=== PATIENT | male | born 1970 | race Two or more races ===

== ENCOUNTER 2021-09-08 08:32 | Emergency (ER) | payer SELFPAY ==
[~2021-09-08] VITALS: Ht 167.6 cm; Wt 48.9 kg
[2021-09-08 09:37] LABS: BILIRUBIN,URINE NEGATIVE (NEG); CLARITY,URINE CLEAR; COLOR,URINE YELLOW; NITRITE,URINE NEGATIVE (NEG); PH,URINE 6.5 (<5.0-8.0); PROTEIN,URINE NEGATIVE (NEG-TRACE); UROBILINOGEN,URINE 0.2 mg/dL (0.2 mg/dL)
[2021-09-08 09:57] LABS: BACTERIA,URINE 0 /HPF (0-FEW); RBC,URINE 0 /HPF (0-2); WBC,URINE 0 /HPF (0-4)
--- NOTE | 2021-09-08 10:25 | PHYS DOC ---
Past Medical History Past Surgical History: No Surgical History Smoking Status: Unknown if ever smoked Alcohol Use: None General Adult EDM: Chief Complaint: ABDOMINAL PAIN HPI: HPI: HPI limited to interpretation service, patient has [place]-speaking, used [facility] [address] provided interpreter and translator environmental service aide #[id number]. Patient is a 51-year-old male who presents to the emergency department complaining abdominal swelling with urinary pressure and urinary burning for the past 3 weeks. Denies penile discharge, rashes or lesions to his genitals, denies STI concerns. Patient denies abdominal pain, reports intermittent back pains, also reports intermittent anterior left thigh and right thigh numbness and tingling while working over the past 3 weeks. Denies thigh numbness or discomfort at this time. Denies numbness or tingling to his feet, denies swelling or edema to his lower extremities. Denies recent fever or chills. Denies nausea, vomiting, diarrhea. Denies seeing blood in his stool or in his urine. Patient reports normal bowel movement 2 days ago also reporting normal bowel movements every other day. Patient denies allergies to medications, does not take [id number] or prescription medications at home, reports smoking cigarettes, denies alcohol consumption or illicit drug use. Denies history of IVDU, Immunosuppression, cancer, fever/chills, saddle anesthesia, bowel/bladder incontinence/retention, or trauma. Review of Systems: Review of Systems: ROS limited to interpreter and translator service. 14 body systems of review of systems have been reviewed. See HPI for pertinent positives and negative responses, otherwise all other systems are negative, nonpertinent or noncontributory. Constitutional: Negative except as outlined in HPI above. Skin: Negative except as outlined in HPI above. Eyes: Negative except as outlined in HPI above. HENT: Negative except as outlined in HPI above. Respiratory: Negative except as outlined in HPI above. Cardiovascular: Negative except as outlined in HPI above. GI: Negative except as outlined in HPI above. : Negative except as outlined in HPI above. Musculoskeletal: Negative except as outlined in HPI above. Integument: Negative except as outlined in HPI above. Neurologic: Negative except as outlined in HPI above. Endocrine: Negative except as outlined in HPI above. Lymphatic: Negative except as outlined in HPI above. Psychiatric: Negative except as outlined in HPI above. Heart Score: C/O Chest Pain: No Risk Factors: Risk Factors: DM, Current or recent (<one month) smoker, HTN, HLP, family history of CAD, obesity. Risk Scores: Score 0 - 3: 2.5% MACE over next 6 weeks - Discharge Home Score 4 - 6: 20.3% MACE over next 6 weeks - Admit for Clinical Observation Score 7 - 10: 72.7% MACE over next 6 weeks - Early Invasive Strategies Allergies: Allergies: Allergies Coded Allergies Type Severity Reaction Last Updated Verified No Known Drug Allergies 09/08/21 No Physical Exam: PE: Constitutional: Well developed, well nourished, no acute distress, non-toxic appearance. 51-year-old male in no apparent distress. HENT: Normocephalic, atraumatic. Eyes: Conjunctiva normal, no discharge. Neck: Normal range of motion, no stridor. Cardiovascular: No cyanosis appreciated, distal cap refill less than 2 seconds. Lungs & Thorax: Patient is in no respiratory distress, no audible adventitious lung sounds appreciated. Abdomen: Nontender, no abnormalities noted. No tenderness to palpation all 4 quadrants, normal bowel sounds all 4 quadrants, no abnormal discoloration of this get of the abdomen appreciated. Skin: Warm, dry, no erythema, no rash. Back: No tenderness, no deformities. 5 out of 5 lower extremity motor strength with hip flexion, knee flexion/extension/abduction, plantar/dorsiflexion at ankle and dorsiflexion of the toes bilaterally. She denies Extremities: No tenderness, no cyanosis, no clubbing, ROM intact, no edema. Neurologic: Alert and oriented X 3, normal motor function, normal sensory function, no focal deficits noted. Psychologic: Affect normal, judgement normal, mood normal. Current Patient Data: Labs: Laboratory Tests Test 09/08/21 09:25 Urine Collection Type Unknown Urine Color Yellow Urine Clarity Clear Urine pH 6.5 (<5.0-8.0) Urine Specific [place] <=1.005 (1.000-1.030) Urine Protein Negative mg/dL (NEG-TRACE) Urine Glucose (UA) Negative mg/dL (NEG) Urine Ketones (Stick) Negative mg/dL (NEG) Urine Blood Negative (NEG) Urine Nitrite Negative (NEG) Urine Bilirubin Negative (NEG) Urine Urobilinogen Dipstick 0.2 mg/dL (0.2 mg/dL) Urine Leukocyte Esterase Negative (NEG) Urine RBC 0 /HPF (0-2) Urine WBC 0 /HPF (0-4) Urine Squamous Epithelial Cells None /LPF Urine Bacteria 0 /HPF (0-FEW) Vital Signs: Vital Signs Date Time Temp Pulse Resp B/P (MAP) Pulse Ox O2 Delivery O2 Flow Rate FiO2 09/08/21 09:04 86 18 111/72 (85) 100 Room Air EKG: EKG: [] Radiology/Procedures: Radiology/Procedures: STATUS: REG ER ORD. PHYSICIAN: CHARLES ADAN APRN REASON: LOWER BACK PAIN PROCEDURE: CT LUMBAR SPINE RECONSTRUCTION EXAM: CT Abdomen and Pelvis with IV contrast. Reformatted images of the lumbar spine. CLINICAL HISTORY: Reason: Abdominal swelling / Spl. Instructions: OMNI 300 INJ. 75 MLS / History: . COMPARISON: none TECHNIQUE: Helical CT of the abdomen and pelvis was performed following the administration of intravenous contrast. Without oral contrast Axial, coronal and sagittal reformatted images were generated. PQRS compliance statement - One or more of the following individualized dose reduction techniques were utilized for this study: 1. Automated exposure control 2. Adjustment of the mA and/or kV according to patient size 3. Use of iterative reconstruction technique FINDINGS: Lower Chest: Visualized lung bases are clear. Abdomen and Pelvis: There is normal in size and attenuation. There is a trace amount of focal fat adjacent to the falciform ligament. There is a minimal amount of periportal edema. Normal gallbladder is present. No significant biliary ductal dilation. The spleen, adrenals, and pancreas are unremarkable. Symmetric renal nephrograms. No nephrolithiasis or hydronephrosis. Stomach is unremarkable. No evidence of bowel obstruction or focal inflammation there is a moderate colorectal stool burden with moderate amount of air seen within the colon and rectum. Appendix is not definitely visualized. No free intra-abdominal air or free fluid. No pathologically enlarged abdominal or pelvic lymph nodes. Vasculature is normal in course and caliber. Bladder is distended but normal in appearance. Prostate gland is unremarkable. Intra-abdominal wall is unremarkable. Bones: No acute fracture or suspicious osseous abnormalities. There are 5 nonrib-bearing lumbar vertebrae. Vertebral body heights are preserved. No acute or suspicious osseous abnormalities. There is moderate intervertebral and facet arthrosis at the L5-S1 level. No evidence of significant degenerative changes of the SI joints. IMPRESSION: 1. No acute abnormality in the abdomen/pelvis or lumbar spine. 2. Moderate colorectal stool burden suggestive of constipation. Recommend clinical correlation. Electronically signed by: Ryan Fuentes DO (09/08/2021 12:43 PM) [facility] Course & Med Decision Making: Course & Med Decision Making Pertinent Labs and Imaging studies reviewed. (See chart for details) 51-year-old male, vital signs reviewed, presents to the emergency department concerning abdominal swelling with urinary burning and pressure for the past 3 weeks. Physical examination unremarkable, patient has no symptoms at this current time, patient did report he was sent here by his work to get checked out because of his complaints during work time. Will order urinalysis assay. Patient's urine is not infected, with patient's other complaints of abdominal swelling and intermittent back pain and intermittent lower extremity paresthesias will order CTA abdomen, CBC, CMP, lactic acid, CK profile. A Chlamydia/GC was added to urine sample in lab. CT imaging suggestive of constipation. Patient's labs unremarkable. Discussed findings with patient, will order magnesium citrate medication prior to discharge. Discussed with patient increase water intake, increase foods with fiber to help maintain normal bowel movements. Discussed with patient follow-up with primary care, return ER precautions and concerns. Patient is amenable to ED discharge planning. Discussed with the patient all findings and diagnostic testing as well as the need to follow-up with their primary care provider for further evaluation and treatment or return to the ED if any new or worsening symptoms. Strict return precautions were also discussed at length, the patient voiced understanding and agreement with the discharge planning. The patient was nontoxic in appearance, in no apparent distress, and hemodynamically stable at the time of disposition. Deirdre Disclaimer: Deirdre Disclaimer: This electronic medical record was generated, in whole or in part, using a voice recognition dictation system. Departure Departure Impression: Primary Impression: Constipation Qualified Codes: K59.00 - Constipation, unspecified Additional Impression: Abdominal pain Qualified Codes: R10.84 - Generalized abdominal pain Disposition: HOME / SELF CARE / HOMELESS Condition: GOOD Referrals: NO PCP (PCP) Patient Instructions: Constipation, Adult Additional Instructions: You were seen today in the emergency department for abdominal discomfort and swelling. An extensive abdominal investigation was performed today in the emergency department. Your urine is not infected, your lab work did not show concerning findings today. The CT scan of your abdomen did show a large amount of poop in your large intestine that is suggestive of constipation. You were given a bottle of magnesium citrate to take when you get home. Please drink one half of this bottle, then wait 12 hours, then drink the other half of this bottle. Most likely you will experience increased cramping and abdominal discomfort while the medication is moving your constipated poop through your large intestine. You should find good relief after having a bowel movement. Please consider increasing your fiber intake with your diet, increase fluid intake such as water to help keep your poop loose and manageable. I have attached information for you to follow-up with a primary care physician. Please see 1 soon for reevaluation. You may return to normal work tomorrow. Thank you for visiting our Emergency Department. It was a pleasure taking care of you today in the emergency department and we appreciate you trusting us with your care. If any additional problems come up don't hesitate to return to visit us. Please follow up with your primary care provider so they can plan additional care if needed and know about the problem that you had. If symptoms worsen come back to the Emergency Department. Any concerning symptoms that start such as chest pain, shortness of air, weakness or numbness on one side of the body, running high fevers or any other concerning symptoms return to the ER. Hoy lo vieron en el departamento de emergencias por molestias e hinchazn abdominales. Hoy se realiz quinton extensa investigacin abdominal en el departamento de emergencias. Sanchez orina no est infectada, sanchez anlisis de laboratorio no mostr hallazgos preocupantes hoy. La tomografa computarizada de sanchez abdomen mostr quinton gran cantidad de excremento en el intestino grueso que sugiere estreimiento. Le dieron un frasco de citrato de magnesio para que lo tomara cuando llegara a casa. Zahira la mitad de esta botella, luego espere 12 horas y luego zahira la otra mitad de esta botella. Lo ms probable es que experimente un aumento de los calambres y el malestar abdominal mientras el medicamento mueve las heces estreidas a travs del intestino grueso. Debera encontrar un buen alivio despus de defecar. Considere aumentar la ingesta de fibra con sanchez dieta, aumente la ingesta de lquidos, reid agua, para ayudar a mantener rosy heces sueltas y manejables. He adjuntado informacin para que pueda realizar un seguimiento con un mdico de atencin primaria. Consulte 1 pronto para reevaluacin. Puede volver al trabajo normal maana. Masood por visitar nuestro Departamento de Emergencias. Fue un placer atenderlo hoy en el departamento de emergencias y le agradecemos que nos haya confiado sanchez atencin. Si surge algn problema adicional, no dude en volver a visitarnos. Ebony un seguimiento con sanchez proveedor de atencin primaria para que puedan planificar la atencin adicional si es necesario y conocer el problema que tuvo. Si los sntomas empeoran, regrese al Departamento de Emergencias. Cualquier sntoma preocupante que comience, reid dolor en el pecho, falta de aire, debilidad o entumecimiento en un lado del cuerpo, fiebre óscar o cualquier otro sntoma preocupante, regresa a la dina de emergencias. CHARLES ADAN A PHOTONIC LABORATORY TECHNICIAN Sep 08, 2021 10:25
[2021-09-08 11:14] LABS: BASO # 0.1 x10^3/uL (0.0-0.2); BASO % 1 % (0-3); EOS % 1 % (0-3); HEMOGLOBIN 13.8 g/dL (13.0-17.5); LYMPH # 1.6 x10^3/uL (1.0-4.8); LYMPH % 19 % (24-48); MEAN CORPUSCULAR HEMOGLOBIN 30 pg (25-35); MEAN CORPUSCULAR HGB CONC 33 g/dL (31-37); MEAN CORPUSCULAR VOLUME 91 fL (79-100); MONO # 0.4 x10^3/uL (0.0-1.1); MONO % 5 % (0-9); NEUT # 6.6 x10^3/uL (1.8-7.7); NEUT % 76 % (31-73); PLATELET COUNT 267 x10^3/uL (140-400); RED BLOOD COUNT 4.64 x10^6/uL (4.30-5.70); RED CELL DISTRIBUTION WIDTH 12.7 % (11.5-14.5); WHITE BLOOD COUNT 8.7 x10^3/uL (4.0-11.0)
[2021-09-08 11:22] LABS: CALCIUM 8.3 mg/dL (8.5-10.1); CREATININE 0.7 mg/dL (0.7-1.3); GFR 119.4; POTASSIUM 4.1 mmol/L (3.5-5.1)
[2021-09-08 11:28] LABS: ALBUMIN 3.4 g/dL (3.4-5.0); ALBUMIN/GLOBULIN RATIO 0.9 (1.0-1.7); TOTAL BILIRUBIN 0.4 mg/dL (0.2-1.0)
[2021-09-08] MEDS ORDERED: IOHEXOL 300 MG/ML 100ML VIAL. IV ONE (12:00)
[2021-09-08] MEDS ORDERED: CONTRAST GIVEN. MC PRN (12:00)
--- NOTE | 2021-09-08 12:45 | RAD ---
EXAM: CT Abdomen and Pelvis with IV contrast. Reformatted images of the lumbar spine. CLINICAL HISTORY: Reason: Abdominal swelling / Spl. Instructions: OMNI 300 INJ. 75 MLS / History: . COMPARISON: none TECHNIQUE: Helical CT of the abdomen and pelvis was performed following the administration of intrave nous contrast. Without oral contrast Axial, coronal and sagittal reformatted images were generated. PQRS compliance statement - One or more of the following individualized dose reduction techniques wer e utilized for this study: 1. Automated exposure control 2. Adjustment of the mA and/or kV according to patient size 3. Use of iterative reconstruction technique FINDINGS: Lower Chest: Visualized lung bases are clear. Abdomen and Pelvis: There is normal in size and attenuation. There is a trace amount of focal fat adjacent to the falcifo rm ligament. There is a minimal amount of periportal edema. Normal gallbladder is present. No signifi cant biliary ductal dilation. The spleen, adrenals, and pancreas are unremarkable. Symmetric renal nephrograms. No nephrolithiasis or hydronephrosis. Stomach is unremarkable. No evidence of bowel obstruction or focal inflammation there is a moderate c olorectal stool burden with moderate amount of air seen within the colon and rectum. Appendix is not definitely visualized. No free intra-abdominal air or free fluid. No pathologically enlarged abdomina l or pelvic lymph nodes. Vasculature is normal in course and caliber. Bladder is distended but normal in appearance. Prostate gland is unremarkable. Intra-abdominal wall is unremarkable. Bones: No acute fracture or suspicious osseous abnormalities. There are 5 nonrib-bearing lumbar verte brae. Vertebral body heights are preserved. No acute or suspicious osseous abnormalities. There is mo derate intervertebral and facet arthrosis at the L5-S1 level. No evidence of significant degenerative changes of the SI joints. IMPRESSION: 1. No acute abnormality in the abdomen/pelvis or lumbar spine. 2. Moderate colorectal stool burden suggestive of constipation. Recommend clinical correlation. Electronically signed by: Ryan Fuentes DO (09/08/2021 12:43 PM) [facility]
[2021-09-08 13:50] VITALS: BP 99/62
[2021-09-08] MEDS ORDERED: MAGNESIUM CITRATE 296 ML SOLUTION. PO ONE (14:00)
== END 2021-09-08 14:07 | disposition home or self-care (01) ==
LOC: ER 08:32
DX: K59.00 Constipation, unspecified (principal)
CPT/HCPCS: 36415; 74177; 80053; 81001; 82550; 83605; 85025; 87491; 87591; 99285-25